=== PATIENT | female | born 1970 | race Caucasian/White ===

== ENCOUNTER 2018-06-18 13:19 | Emergency (ER) | payer MEDICAID ==
[~2018-06-18] VITALS: Ht 162.6 cm; Wt 63.2 kg
[2018-06-18 13:23] VITALS: BP 130/67
[2018-06-18] MEDS ORDERED: ipratropium/albuterol 3ml nebule NEB ONE (13:55)
[2018-06-18] MEDS ORDERED: ALBU8HFA PO (14:08)
[2018-06-18] MEDS ORDERED: CLON-527 PO (14:08)
[2018-06-18] MEDS ORDERED: METO25TA6 PO (14:08)
[2018-06-18] MEDS ORDERED: AZIT250T83 PO (14:08)
== END 2018-06-18 14:55 | disposition home or self-care (01) ==
LOC: ER 13:20
DX: J20.9 Acute bronchitis, unspecified (principal); R22.31 Localized swelling, mass and lump, right upper limb; I10 Essential (primary) hypertension; F12.90 Cannabis use, unspecified, uncomplicated; Z79.2 Long term (current) use of antibiotics; Z79.899 Other long term (current) drug therapy
CPT/HCPCS: 71046; 94640; 94760; 99284